=== PATIENT | male | born 1955 | race American Indian/Alaskan Native ===

== ENCOUNTER 2017-10-03 10:50 | Emergency (ER) | payer BC ==
[2017-10-03 11:51] LABS: Bilirubin,Urine NEG (Negative); Blood,Urine SM (Negative); Color,Urine Yellow (Yellow); Mucus,Urine FEW /HPF; Protein,Urine <15 mg/dL mg/dL (Negative); Urobilinogen,Urine < 2.0 mg/dL (<2.0)
[2017-10-03] MEDS ORDERED: APRESOLINE IV ONE (12:09)
[2017-10-03 12:49] LABS: Basophils # (Auto) 0.1 K/mm3 (0.0-0.1); Eosinophils # (Auto) 0.1 K/mm3 (0.0-0.4); Eosinophils % (Auto) 1.9 % (0.0-4.3); Hematocrit 43.6 % (35.5-45.6); Hemoglobin 14.5 gm/dl (11.8-15.2); Lymphocytes # (Auto) 1.5 K/mm3 (1.2-5.4); Lymphocytes % (Auto) 27.9 % (13.4-35.0); Mean Corpuscular HGB Conc 33 % (32-34); Mean Corpuscular Hemoglobin 28 pg (28-32); Mean Corpuscular Volume 83 fl (84-94); Monocytes # (Auto) 0.5 K/mm3 (0.0-0.8); Monocytes % (Auto) 9.9 % (0.0-7.3); Platelet Count 258 K/mm3 (140-440); Red Blood Count 5.28 M/mm3 (3.65-5.03); Red Cell Distribution Width 16.2 % (13.2-15.2)
[2017-10-03 13:05] LABS: Alanine Aminotransferase 10 units/L (7-56); Albumin 3.4 g/dL (3.9-5); BUN/Creatinine Ratio 11; Blood Urea Nitrogen 13 mg/dL (9-20); Calcium 8.7 mg/dL (8.4-10.2); Hemolysis Index 34
--- NOTE | 2017-10-03 13:05 | Emergency Department Report ---
HPI - General Chief Complaint: High BP Time Seen by Provider: 10/03/17 12:09 - HPI HPI: This is a 61-year-old -[place] male who presents to ED with elevated blood pressure. Patient states he was at the dentist last week trying to get some dental work done but his blood pressure was 200/100 so he was advised to come to ED. 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 He denies any chest pain, shortness of breath, nausea, vomiting, change of vision. He is [id number] smoker. ED Past Medical Hx - Past Medical History Previous Medical History?: Yes Hx Hypertension: Yes (no meds since 2012) Additional medical history: dental caries - Surgical History Past Surgical History?: No - Social History Smoking Status: Current Every Day Smoker Substance Use Type: Alcohol - Medications Home Medications: Home Medications Medication Instructions Recorded Confirmed Last Taken Type Losartan Potassium [Cozaar] 100 mg PO DAILY #90 tablet 10/03/17 Unknown Rx ED Review of Systems ROS: Stated complaint: HTN Other details as noted in HPI Comment: All other systems reviewed and negative Respiratory: denies: cough, orthopnea Cardiovascular: denies: chest pain, palpitations, dyspnea on exertion Physical Exam - Physical Exam Vital Signs: Vital Signs 10/03/17 10/03/17 10/03/17 11:12 12:10 12:25 Temperature 98.6 F Pulse Rate 76 62 62 Respiratory 20 Rate Blood Pressure 229/138 213/125 Blood Pressure 213/125 [Left] O2 Sat by Pulse 98 Oximetry Physical Exam: - Physical Exam - General Limitations: No Limitations General appearance: alert, in no apparent distress, obese - Head Head exam: Present: atraumatic, normocephalic - Eye Eye exam: Present: normal appearance - ENT ENT exam: Present: mucous membranes moist - Neck Neck exam: Present: normal inspection - Respiratory Respiratory exam: Present: normal lung sounds bilaterally. Absent: respiratory distress - Cardiovascular Cardiovascular Exam: Present: normal rhythm, tachycardia. Absent: systolic murmur, diastolic murmur, rubs, gallop - GI/Abdominal GI/Abdominal exam: Present: soft, normal bowel sounds - Extremities Exam Extremities exam: Present: normal inspection - Back Exam Back exam: Present: normal inspection - Neurological Exam Neurological exam: Present: alert, oriented X3 - Psychiatric Psychiatric exam: normal affect and mood - Skin Skin exam: Present: warm, dry, intact, normal color. Absent: rash ED Course Vital Signs 10/03/17 10/03/17 10/03/17 11:12 12:10 12:25 Temperature 98.6 F Pulse Rate 76 62 62 Respiratory 20 Rate Blood Pressure 229/138 213/125 Blood Pressure 213/125 [Left] O2 Sat by Pulse 98 Oximetry - Reevaluation(s) Reevaluation #1: 10/03/17 12:58 She was giving hydralazine 20 mg IV in the ED which brought his blood pressure down to 160s over 90s. Patient states he feels better, wants to go home, advise about compliance of medications. He has not seen a doctor in over 3 years. He was advised to follow-up with his primary care physician. ED Medical Decision Making - Lab Data Result diagrams: 10/03/17 12:15 10/03/17 12:15 - EKG Data -: EKG Interpreted by Me EKG shows normal: sinus rhythm Rate: normal - EKG Data When compared to previous EKG there are: previous EKG unavailable Interpretation: LVH - Medical Decision Making Patient blood pressure is high, but he does not seem to have any end organ damage. He was advised to follow up with PCP. I'll give him a one-month supply of losartan 100 mg daily. He was advised to return to ED with headache, change of vision, chest pain, shortness of breath, focal weakness or deficits. Patient reports understanding to plan. Critical care attestation.: If time is entered above; I have spent that time in minutes in the direct care of this critically ill patient, excluding procedure time. ED Disposition Clinical Impression: Hypertension Qualifiers: Hypertension type: essential hypertension Qualified Code(s): I10 - Essential ( primary) hypertension Disposition: DC-01 TO HOME OR SELFCARE Is pt being admited?: No Does the pt Need Aspirin: No Condition: Stable Instructions: Hypertension (ED) Prescriptions: Losartan Potassium [Cozaar] 100 mg PO DAILY #90 tablet
[2017-10-03 13:28] VITALS: BP 179/101
== END 2017-10-03 13:33 | disposition home or self-care (01) ==
LOC: ED 10:50
DX: I10 Essential (primary) hypertension (principal); F17.200 Nicotine dependence, unspecified, uncomplicated
CPT/HCPCS: 36415; 80053; 81001; 84484; 85025; 93005; 93010; 96374; 99283; J0360

== ENCOUNTER 2018-03-17 06:26 | Day surgery (SDC) | payer BC ==
[2018-03-17 07:20] LABS: Basophils # (Auto) 0.1 K/mm3 (0.0-0.1); Basophils % (Auto) 1.1 % (0.0-1.8); Eosinophils # (Auto) 0.1 K/mm3 (0.0-0.4); Hematocrit 46.6 % (35.5-45.6); Hemoglobin 15.6 gm/dl (11.8-15.2); Lymphocytes # (Auto) 1.8 K/mm3 (1.2-5.4); Lymphocytes % (Auto) 31.4 % (13.4-35.0); Mean Corpuscular HGB Conc 33 % (32-34); Mean Corpuscular Hemoglobin 28 pg (28-32); Mean Corpuscular Volume 85 fl (84-94); Monocytes # (Auto) 0.5 K/mm3 (0.0-0.8); Monocytes % (Auto) 8.6 % (0.0-7.3); Platelet Count 265 K/mm3 (140-440); Red Blood Count 5.51 M/mm3 (3.65-5.03); Red Cell Distribution Width 15.6 % (13.2-15.2)
[2018-03-17 07:31] LABS: INR 0.9 (0.87-1.13)
[2018-03-17 07:33] LABS: BUN/Creatinine Ratio 17; Blood Urea Nitrogen 15 mg/dL (9-20); Calcium 9.3 mg/dL (8.4-10.2); Hemolysis Index 1
[2018-03-17] MEDS ORDERED: ECOTRIN PO ONE (07:33)
[2018-03-17] MEDS ORDERED: NACL 0.9% 500 ML 500 ML IV SCH (08:00)
[2018-03-17] MEDS ORDERED: HEPARIN/NS 5000 UNIT/500ML(CATH LAB) 1,000 ML IR ONE (08:14)
[2018-03-17] MEDS ORDERED: HEPARIN 10,000 UNITS/10 ML ONE (08:14)
[2018-03-17] MEDS ORDERED: CALAN ONE (08:15)
[2018-03-17] MEDS ORDERED: NITROGLYCERIN SYRINGE 0 ML ONE (08:15)
[2018-03-17] MEDS ORDERED: XYLOCAINE 2% INFILTRATI ONE (08:15)
[2018-03-17] MEDS ORDERED: VERSED ONE (08:15)
[2018-03-17] MEDS: SUBLIMAZE ONE ×2 (08:50→08:51)
--- NOTE | 2018-03-17 10:07 | Cardiac Catherization Report ---
INDICATION FOR PROCEDURE: The patient is a 62-year-old -[place] gentleman, patient of Dr. Luz Sanchez, with a history of smoking and high blood pressure, has abnormal stress nuclear imaging, nuclear imaging showed ejection fraction of 48% with evidence of medium to large partially reversible inferior perfusion abnormality of moderate intensity. The patient did not have any chest pain or shortness of breath. Because of abnormal nuclear imaging, the patient was scheduled for cardiac catheterization for definitive diagnosis and treatment. The patient was explained of the procedure, potential complications and alternatives of therapy available. DESCRIPTION OF PROCEDURE: The patient was brought to the catheterization laboratory in a fasting condition. The right wrist area and forearm thoroughly cleansed with Betadine solution. The patient was evaluated for moderate sedation and he was felt to be appropriate candidate for moderate sedation and received IV Versed and fentanyl starting at 8:49 a.m. The patient was monitored throughout the procedure with hemodynamic monitoring, pulse oximetry and EKG monitoring. Right radial artery puncture was made using 21-gauge arterial puncture needle. Subsequently, 5-Welsh slender sheath was introduced. The patient received intra-arterial verapamil and intravenous heparin. Subsequently, using 5-Welsh multipurpose catheter, angiograms of the left coronary artery, right coronary artery and left angiogram was performed using hand injection. At the end of the procedure, catheter and sheath were removed. Good hemostasis was achieved with pressure bandage. The patient tolerated the procedure well. The patient was monitored for sedation up to 9:13 a.m. No untoward complications were noted. Following findings were noted. HEMODYNAMICS: 1. Opening aortic pressure 168/86. Left ventricular pressure 163/11. No gradient across the aortic valve. Estimated ejection fraction 65%. 2. Left ventriculogram done in AMATO projection showed normal sized left ventricle with normal contractility. End-diastolic and systolic volumes also normal. Mitral regurgitation could not be evaluated because of limited amount of dye injected. 3. Left coronary artery arises normally from left coronary cusp. Left main without significant disease. LAD, which curves around the apex, shows mild irregularities. The proximal part not more than 20% in diameter stenosis. Similarly, circumflex artery shows mild to moderate disease in the proximal part, reaching probably 30% or so in diameter stenosis. Otherwise, no significant abnormalities noted. Right coronary artery dominant vessel arises normally from right coronary cusp. There is a smooth 50-60% ostial PDA lesion. PDA itself is medium size to large vessel. Rest of the RCA without significant disease. Collaterals none. FINAL IMPRESSION: 1. Normal sized left ventricle with normal contractility. End-diastolic pressure is elevated up to 20 mmHg. 2. Mild disease in the left coronary system and moderate ostial lesion of the medium to large sized PDA in the right coronary system, which is dominant vessel. Considering above angiographic picture including patient being asymptomatic will be continued on risk factor modification and medical therapy. No untoward complications were noted. JOB# [id number] CLIFFORD/NTS
[2018-03-17 14:43] VITALS: BP 164/97
== END 2018-03-17 14:00 | disposition home or self-care (01) ==
LOC: CATHLABREC 06:26
PROVIDERS: ATTEND Internal Medicine
DX: I25.10 Atherosclerotic heart disease of native coronary artery without angina pectoris (principal); I10 Essential (primary) hypertension; F17.210 Nicotine dependence, cigarettes, uncomplicated; Z79.899 Other long term (current) drug therapy; Z79.01 Long term (current) use of anticoagulants; Z82.49 Family history of ischemic heart disease and other diseases of the circulatory system; Z80.8 Family history of malignant neoplasm of other organs or systems
CPT/HCPCS: 36415; 80048; 85025; 85610; 85730; 93005; 93010; 93458; 99156; 99157; C1894; J1644; J2250; J3010; J7040; Q9967